=== PATIENT | female | born 1945 | race Caucasian/White ===

== ENCOUNTER 2017-04-14 18:14 | Emergency (ER) | payer MEDICARE ==
[~2017-04-14 18:14] MED LIST: ISOVUE-370 76%-LOCM 1 ML ONE; Iopamidol 370 76% 50 ML VIAL FS ONE
[2017-04-14 19:15] LABS: #Basophils 0.1 thou/uL (0.0-0.2); #Eosinphils 0.3 thou/uL (0.0-0.7); #Lymphocytes 1.3 thou/uL (1.20-3.40); #Neutrophils 6.7 thou/uL (1.40-6.50); %Basophils 0.6 % (0.0-1.0); %Eosinophils 2.9 % (0.0-10.0); %Lymphocytes 13.8 % (21.0-51.0); %Monocytes 10.5 % (0.0-10.0); %Neutrophils 72.1 % (42.0-75.0); Hemoglobin 12.7 g/dL (12.0-16.0); Mean Corpuscular HGB CONC 32.7 g/dL (32.0-36.0); Mean Corpuscular Hemoglobin 32.9 pg (27.0-31.0); Platelet Count 199 thou/uL (130-400); RBC Distribution Width 13.1 % (11.5-14.5); Red Blood Cell (RBC) Count 3.85 mill/uL (4.20-5.40); White Blood Cell (WBC) Count 9.4 thou/uL (4.8-10.8)
[2017-04-14 19:36] LABS: ALT (SGPT) 618 U/L (8-55); AST (SGOT) 383 U/L (5-34); Alkaline Phosphatase 998 U/L (40-150); Anion Gap 13 mmol/L (10-20); BUN (Urea Nitrogen) 16 mg/dL (9.8-20.1); Bilirubin, Total 14.5 mg/dL (0.2-1.2); Calc. Creatinine Clearance 0 mL/min (70-130); Calcium 9.4 mg/dL (7.8-10.44); Carbon Dioxide 24 mmol/L (23-31); Chloride 101 mmol/L (98-107); Estimated GFR-MDRD 75; Globulin 3.1 g/dL (2.4-3.5); Glucose 169 mg/dL (80-115); Lipase 11 U/L (8-78); Potassium 3.8 mmol/L (3.5-5.1); Protein, Total 7.1 g/dL (6.0-8.3); Sodium 134 mmol/L (136-145)
[2017-04-14 19:37] LABS: Troponin I Less than 0.010 ng/mL (< 0.028)
[2017-04-14 20:05] LABS: Bilirubin Large (Negative); Blood, Urine Negative (Negative); Clarity CLEAR (Clear); Glucose, Urine (Dipstick) Negative (Negative); Leukocyte Small (Negative); Nitrite Negative (Negative); Protein, Urine (Dipstick) Negative (Neg-Trace)
[2017-04-14 20:07] LABS: Bacteria/HPF None Seen HPF (None Seen); Hyaline Casts/LPF 0-3 HYALINE CAST LPF (0-3 Hyaline); Squamous Epithelial None Seen HPF (0-3); WBC/HPF 0-3 HPF (0-3)
[2017-04-14 20:15] LABS: RBC/HPF None Seen HPF (0-3)
--- NOTE | 2017-04-14 23:19 | CT ---
CT ABDOMEN AND PELVIS 04/14/17 HISTORY: Painless jaundice. Elevated liver enzymes. COMPARISON: 06/23/12. FINDINGS: The pancreas is atrophied. However, there is an increased density mass-like structure seen in the reg ion of the pancreatic head which measures 2.5 cm x 1.8 cm. There is dilatation of the pancreatic duct as well as intra and extrahepatic biliary ductal dilatation present. The extrahepatic common duct me asures approximately 1.4 cm in diameter. The most proximal pancreatic duct measures approximately 5 t o 6 mm in diameter. There is mild intrahepatic biliary ductal dilatation more prominent in the right hepatic lobe. The gallbladder is distended measuring 10 cm in length. The lung bases, spleen, bilateral adrenal glands, kidneys, opacified bowel and urinary bladder demons trate a normal CT appearance. No free fluid, fluid collection or lymphadenopathy is seen in the abdomen or pelvis. The osseous structures appear intact. No lytic or sclerotic osseous lesions are appreciated. IMPRESSION: 1. Pancreatic head mass with intra and extrahepatic biliary ductal dilatation as well as dilatat ion of the pancreatic duct. 2. Distention of the gallbladder. 3. Above findings discussed with Dr. Helton in the Emergency Department on 04/14/17 at [address] POS: [facility]
--- NOTE | 2017-05-07 18:19 | EKG ---
Test Reason : Blood Pressure : / mmHG Vent. Rate : 085 BPM Atrial Rate : 085 BPM P-R Int : 122 ms QRS Dur : 088 ms QT Int : 368 ms P-R-T Axes : 067 042 042 degrees QTc Int : 437 ms Normal sinus rhythm Possible Left atrial enlargement ST abnormality, possible digitalis effect Abnormal ECG Confirmed by PETER REYES ([id number]), assistant production editor HUSSAIN LEVINE ([id number]) on 05/07/2017 6:18:32 PM Referred By: Confirmed By:PETER REYES
== END 2017-04-14 23:16 | disposition home or self-care (01) ==
LOC: ERS 18:14
DX: K86.9 Disease of pancreas, unspecified (principal); I10 Essential (primary) hypertension; Z79.899 Other long term (current) drug therapy
CPT/HCPCS: 36415; 74177; 80053; 80074; 81003; 81015; 82553; 83605; 83690; 84484; 85025; 85610; 87086; 93005

== ENCOUNTER 2018-06-22 13:35 | Outpatient (CLI) | payer MEDICARE ==
--- NOTE | 2018-06-22 14:41 | MMO ---
Bilateral MAMMO Bilat Screen [facility]. CLINICAL HISTORY: Patient is 72 years old and is seen for screening. The patient has the following family history of breast cancer: mother, at age 85. The patient has a history of pancreatic cancer at age 71. VIEWS: The views performed were: bilateral craniocaudal with tomosynthesis and bilateral mediolateral oblique with tomosynthesis. FILMS COMPARED: The present examination has been compared to prior imaging studies performed at [facility] on 06/27/2007, 08/01/2008, 09/18/2009, 09/25/2010, 09/29/2011, 10/23/2012, 10/30/2013, 11/05/2014, 11/14/2015 and 12/22/2016, and [facility] and 04/20/2006. MAMMOGRAM FINDINGS: There are scattered fibroglandular densities. There are no suspicious masses, suspicious calcifications, or new areas of architectural distortion. IMPRESSION: THERE IS NO MAMMOGRAPHIC EVIDENCE OF MALIGNANCY. A ROUTINE FOLLOW-UP MAMMOGRAM IN 1 YEAR IS RECOMMENDED. THE RESULTS OF THIS EXAM WERE SENT TO THE PATIENT. ACR BI-RADS Category 1 - Negative MAMMOGRAPHY NOTE: 1. A negative mammogram report should not delay a biopsy if a dominant of clinically suspicious mass is present. 2. Approximately 10% to 15% of breast cancers are not detected by mammography. 3. Adenosis and dense breasts may obscure an underlying neoplasm.
== END 2018-06-22 13:36 | disposition home or self-care (01) ==
LOC: BICMAMMO 13:35
PROVIDERS: ATTEND Internal Medicine Hematology & Oncology
DX: Z12.31 Encounter for screening mammogram for malignant neoplasm of breast (principal); Z80.3 Family history of malignant neoplasm of breast; Z85.07 Personal history of malignant neoplasm of pancreas
CPT/HCPCS: 77063; 77067

== ENCOUNTER 2021-02-03 11:37 | Outpatient (CLI) | payer MEDICARE | END 2021-02-03 11:38 | disposition home or self-care (01) | LOC: BICMAMMO 11:37 | PROVIDERS: ATTEND Family Medicine | DX: Z12.31 Encounter for screening mammogram for malignant neoplasm of breast (principal); Z85.07 Personal history of malignant neoplasm of pancreas; Z80.3 Family history of malignant neoplasm of breast | CPT/HCPCS: 77063; 77067 ==

== ENCOUNTER 2022-03-31 10:11 | Outpatient (CLI) | payer MEDICARE | END 2022-03-31 10:12 | disposition home or self-care (01) | LOC: BICMAMMO 10:11 | PROVIDERS: ATTEND Family Medicine | DX: Z12.31 Encounter for screening mammogram for malignant neoplasm of breast (principal); Z85.07 Personal history of malignant neoplasm of pancreas; Z85.3 Personal history of malignant neoplasm of breast | CPT/HCPCS: 77063; 77067 ==

== ENCOUNTER 2023-07-12 13:12 | Outpatient (CLI) | payer MEDICARE | END 2023-07-12 13:13 | disposition home or self-care (01) | LOC: BICMAMMO 13:12 | PROVIDERS: ATTEND Student in an Organized Health Care Education/Training Program | DX: Z13.820 Encounter for screening for osteoporosis (principal); M85.89 Other specified disorders of bone density and structure, multiple sites; Z78.0 Asymptomatic menopausal state | CPT/HCPCS: 77080 ==

== ENCOUNTER 2024-10-16 10:54 | Outpatient (CLI) | payer MEDICARE | END 2024-10-16 10:55 | disposition home or self-care (01) | LOC: BICMAMMO 10:54 | PROVIDERS: ATTEND Internal Medicine Hematology & Oncology | DX: M81.8 Other osteoporosis without current pathological fracture (principal); E53.8 Deficiency of other specified B group vitamins; C25.0 Malignant neoplasm of head of pancreas | CPT/HCPCS: 77080 ==